=== PATIENT | female | born 1955 | race Caucasian/White ===

== ENCOUNTER 2016-11-23 13:06 | Day surgery (SDC) | payer MEDICAID, OTHER ==
[~2016-11-23] VITALS: Ht 154.9 cm; Wt 51.8 kg
[~2016-11-23 13:06] MED LIST: ALPR1TAB2 PO; AMLO-145 PO; CITA-104 PO; CLON-379 PO; COLC0.6T6 PO; DOCUSATE PO; ESOM40CA PO; FURO20TA3 PO; MEDR2.5T21 PO; MORPHINE PO; NITR0.4T6 SL
[2016-11-23 14:18] VITALS: Ht 154.9 cm; Wt 51.8 kg
[2016-11-23] MEDS ORDERED: PROG100C5 PO (14:42)
[2016-11-23] MEDS ORDERED: ALBUTEROL INHALER (14:42)
[2016-11-23] MEDS ORDERED: FOLI-49 PO (14:42)
[2016-11-23] MEDS ORDERED: OMEP40CA6 PO (14:42)
[2016-11-23] MEDS ORDERED: LIDOCAINE 2% (SDV) 5 ML INJ ONE (17:48)
[2016-11-23] MEDS ORDERED: PROPOFOL 40 ML ONE (17:48)
[2016-11-23 17:50] VITALS: BP 189/95; PULSE 69; RESP 22
--- NOTE | 2016-11-23 18:27 | OPR ---
Date/Time of Note Date/Time of Note DATE: 11/23/16 TIME: 18:23 Operative Report Preoperative Diagnosis Diarrhea Postoperative Diagnosis Impression: * Questionable mild colitis. Random biopsies obtained right, left colon and rectum * Rule out microscopic, lymphocytic or collagenous colitis versus IBD * Normal terminal ileum. Random biopsies obtained * Moderate-sized internal hemorrhoids Plan: * Review pathology * Delzicol 800 mg p.o. 3 times daily * Evaluate small bowel with CT enterography and possible capsule endoscopy * Lactose-free diet . Operation/Procedure Performed Colonoscopy with biopsies Enteroscopy (ileoscopy) with biopsies Surgeon: KAMINI DIAZ MD Anesthesia Type: MAC Estimated Blood Loss: none Transfusion Required: no Specimens Terminal ileum Right colon Left colon Rectum Grafts/Implants: none Complications: no KAMINI DIAZ MD Nov 23, 2016 18:27
[2016-11-23 18:57] VITALS: BP 150/79; PULSE 64; RESP 17
--- NOTE | 2016-11-24 03:47 | GILP ---
DATE OF PROCEDURE: 11/23/2016 PROCEDURE: 1. Colonoscopy with biopsies. 2. Enteroscopy with biopsies. HISTORY AND INDICATIONS: The patient is being evaluated for persistent diarrhea with otherwise negative workup. The patient also has a history of an elevated CEA titer. PREMEDICATION: Monitored anesthesia care by anesthesiologist. INSTRUMENT USED: Olympus colonoscope. PREPARATION: Adequate. TECHNIQUE: After informed consent, with the patient/relatives understanding the procedure, its indications potential risks and complications, including but not limited to: allergic reaction, bleeding, perforation, infection, missed lesions and after all pertinent questions were answered to the patient's satisfaction, the patient/relatives signed the witnessed informed consent. Following this, premedication was administered slowly IV push by under careful cardiovascular and respiratory monitoring with pulse oximetry, automatic blood pressure and surveillance system monitor. Once the sedative effect was achieved, the patient was placed in the left lateral decubitus position, digital rectal examination was performed. The colonoscope was then introduced and advanced under visual control throughout all segments of the colon including: the rectum, sigmoid, descending colon, splenic flexure, transverse colon, hepatic flexure, ascending colon and finally reaching the cecum which was clearly identified by transillumination, finger indentation and the ileocecal valve. Careful examination of the mucosa of the lower gastrointestinal tract both on insertion as well as withdrawal of the instrument disclosed the following findings: RECTAL EXAMINATION: Small external hemorrhoids are noted. COLONIC MUCOSA: There is questionable erythema and congestion in the mucosa of the colon. Random biopsies were obtained of the right colon, left colon and rectum to rule out a microscopic lymphocytic collagenous colitis versus the possibility of IBD. The terminal ileum was entered and examined and appears entirely unremarkable. Biopsies were obtained. The instrument was withdrawn. On withdrawing the instrument, no additional abnormalities are noted with the exception of moderate-sized internal hemorrhoids. The instrument was then withdrawn, the patient tolerated the procedure well and was transferred out of the Endoscopy Suite awake and in good condition to continue recovery under observation. IMPRESSION: 1. Questionable mild colitis. Random biopsies obtained of right, left colon and rectum. Rule out microscopic lymphocytic collagenous colitis. Rule out inflammatory bowel disease. Normal terminal ileum. 2. Moderate-sized internal hemorrhoids. RECOMMENDATIONS: Pathology will be reviewed as soon as available. The patient will be empirically treated with Delzicol 800 mg t.i.d. Evaluate the small bowel with CT enterography and eventually possibly capsule endoscopy. Repeat CEA titer. Dictated By: Maxwell Zhang MD /[email or web address] /Document#: [id number]
== END 2016-11-23 19:03 | disposition home or self-care (01) ==
LOC: GIL 13:06 → EDBD 16:30 → GIL 19:03
PROVIDERS: ATTEND Internal Medicine Gastroenterology
DX: R19.7 Diarrhea, unspecified (principal); K64.8 Other hemorrhoids; K64.4 Residual hemorrhoidal skin tags; J45.909 Unspecified asthma, uncomplicated; K21.9 Gastro-esophageal reflux disease without esophagitis; I10 Essential (primary) hypertension
CPT/HCPCS: 45380; 88305; Z7610